=== PATIENT | female | born 1950 | race African-American/Black ===

== ENCOUNTER 2018-03-18 15:45 | Emergency (ER) | payer BC, OTHER ==
--- NOTE | 2018-03-18 15:53 | PDOC ---
Rapid Medical Evaluation Time Seen by Provider: 03/18/18 15:51 Medical Evaluation: Allergies Allergy/AdvReac Type Severity Reaction Status Date / Time Tetanus Vaccines and Toxoid Allergy Swelling Verified 09/07/12 07:21 [Tetanus] Penicillins AdvReac increased Verified 09/07/12 13:30 urination I have performed a brief in-person evaluation of this patient. The patient presents with a chief complaint of: palpitations and SOB today. patient has hx of pericarditis Pertinent physical exam findings: hypertensive I have ordered the following: labs, EKG, cxr The patient will proceed to the ED for further evaluation. Discharge Disposition - Diagnosis Palpitations - Referrals - Patient Instructions - Post Discharge Activity
[2018-03-18 15:54] VITALS: BP 172/84; PULSE 79; TEMP 98.2; BMI 18.3
[2018-03-18 16:54] LABS: EOS % 0.4 % (0-4.5); HEMATOCRIT 36.8 % (32.4-45.2); HEMOGLOBIN 12.8 GM/dL (10.7-15.3); LYMPH % 34.8 % (8-40); MCH 32.1 pg (25.7-33.7); MCHC 34.8 g/dl (32.0-36.0); MEAN CELL VOLUME 92.2 fl (80-96); MEAN PLT VOLUME 8.3 fl (7.5-11.1); MONO % 11.4 % (3.8-10.2); NEUT % 52.4 % (42.8-82.8); PLATELET COUNT 304 K/MM3 (134-434); RBC 3.99 M/mm3 (3.60-5.2); RDW 12.9 % (11.6-15.6); WHITE BLOOD COUNT 4.1 K/mm3 (4.0-10.0)
[2018-03-18 17:10] LABS: INR 1.12 (0.82-1.09); PROTHROMBIN TIME (PATIENT) 12.6 SEC (9.7-13.0)
--- NOTE | 2018-03-19 11:53 | EKG ---
Test Reason : Blood Pressure : / mmHG Vent. Rate : 081 BPM Atrial Rate : 081 BPM P-R Int : 124 ms QRS Dur : 084 ms QT Int : 382 ms P-R-T Axes : 067 028 053 degrees QTc Int : 443 ms NORMAL SINUS RHYTHM NORMAL ECG WHEN COMPARED WITH ECG OF 08-SEP-2012 09:03, ST NO LONGER ELEVATED IN LATERAL LEADS Confirmed by TEENA WARREN MD ([id number]) on 03/19/2018 11:53:39 AM Referred By: Confirmed By:TEENA WARREN MD
== END 2018-03-18 18:56 | disposition left against medical advice (07) ==
LOC: JER 15:45
DX: R00.2 Palpitations (principal)
CPT/HCPCS: 36415; 85025; 85610; 93005; 93010; 99282-25

== ENCOUNTER 2021-05-09 11:28 | Emergency (ER) | payer BC ==
[2021-05-09 11:44] VITALS: TEMP 98.8
[2021-05-09] MEDS: LABETALOL HCL 5 MG/1 ML (100MG/20 ML VIAL) IVPUSH ONE ×2 (12:35→12:46)
[2021-05-09] MEDS ORDERED: LABETALOL HCL 5 MG/1 ML (100MG/20 ML VIAL) ONE (12:35)
[2021-05-09 12:40] VITALS: BP 156/81
[2021-05-09 12:45] VITALS: PULSE 74
[2021-05-09 13:01] LABS: HEMATOCRIT 39.3 % (32.4-45.2); HEMOGLOBIN 13.4 GM/dl (10.7-15.3); MCH 31.7 pg (25.7-33.7); MCHC 34.1 g/dl (32.0-36.0); MEAN PLT VOLUME 8.6 fl (7.5-11.1); PLATELET COUNT 303 10^3/uL (134-434); RBC 4.23 M/mm3 (3.60-5.2); RDW 12.4 % (11.6-15.6); WHITE BLOOD COUNT 7.5 K/mm3 (4.0-10.8)
[2021-05-09 13:05] LABS: ACTIVATED PTT 25.2 SECONDS (25.2-36.5)
[2021-05-09 13:08] LABS: INR 1.12 (0.82-1.09); PROTHROMBIN TIME (PATIENT) 12.4 SEC (10.2-13.0)
== END 2021-05-09 12:59 | disposition short-term general hospital (02) ==
LOC: FER 11:28
DX: I62.9 Nontraumatic intracranial hemorrhage, unspecified (principal)
CPT/HCPCS: 36415; 70450-TC; 82962; 85025; 85610; 85730; 93005; 99291